=== PATIENT | female | born 1970 | race Caucasian/White ===

== ENCOUNTER 2024-03-10 09:33 | Day surgery (SDC) | payer BC ==
--- NOTE | 2024-03-09 14:05 | HP ---
HISTORY OF PRESENT ILLNESS: The patient is a 54-year-old female who presents for a screening colonoscopy. She had none to date. She reports that her mother had an oral and breast cancer. She has no colon complaints at this time. PAST MEDICAL HISTORY: Arthritis, hiatal hernia, obesity. HOME MEDICATIONS: Semaglutide. ALLERGIES: Morphine and tape. PAST SURGICAL HISTORY: Tonsillectomy, cholecystectomy, ovarian cystectomy, myringotomy, . SOCIAL HISTORY: Current smoker. Occasional alcohol. FAMILY HISTORY: Breast cancer, oral cancer, COPD, heart disease, hypertension. REVIEW OF SYSTEMS: CONSTITUTIONAL: Denies fever or chills. CHEST: Denies shortness of breath. CARDIOVASCULAR: Denies chest pain. ABDOMEN: Denies abdominal pain. PHYSICAL EXAMINATION: GENERAL: No acute distress. RESPIRATORY: Nonlabored. No shortness of breath. CARDIOVASCULAR: Regular rate and rhythm. ABDOMEN: Soft. ASSESSMENT: Screening. PLAN: Colonoscopy with Dr. Mor Richardson. This report was dictated for Dr. Richardson by Joan Moreno NP.
[2024-03-10] MEDS ORDERED: Versed 2 MG/2 ML Injection ONE (11:43)
[2024-03-10] MEDS ORDERED: DIPRIVAN 200 MG/20 ML IV ONE ×3 (11:43→13:14)
[2024-03-10 12:29] VITALS: RESP 20; TEMP 97.4
[2024-03-10 12:45] VITALS: BP 139/74; PULSE 77; O2SAT 99
--- NOTE | 2024-03-14 08:49 | OP ---
SURGERY DATE/TIME: 03/10/2024 [id number] PREOPERATIVE DIAGNOSIS: Screening. POSTOPERATIVE DIAGNOSIS: Three major polyps, 3 cm, 2 cm, and 3 cm; 3 cm distal sigmoid; 2 cm mid sigmoid; 3 cm mid ascending. She had at least five 1 cm polyps, four of these in the cecum and one other. PROCEDURE: Colonoscopy completed to cecum, hot snare polypectomy x3, hot forceps biopsy polypectomy x5. SURGEON: Mor Richardson MD ANESTHESIA: General. COMPLICATIONS: None. CONDITION: Stable. INDICATIONS: The patient presents for screening. DESCRIPTION OF PROCEDURE AND FINDINGS: She was taken to endoscopy. Left lateral decubitus position. Scope introduced. Immediately, there were polyps. A large polyp was taken off the distal sigmoid, 3 cm; a 2 cm polyp off the mid sigmoid; a 3 cm off the descending colon. These were all taken with a hot snare and they all seemed successful. The scope was advanced over the cecum and placed in the cecum with 4 polyps taken off, all 1 cm, and then back above this was a 1 cm polyp. Mucosa looked fairly good. There were some other mucosal polyps present and we certainly did not know the status of these polyps or the base of these polyps. We will see what the path shows and then we will go from there. PLAN: Findings discussed with family in the waiting room. Followup is almost immediate anticipated followup.
== END 2024-03-10 12:55 | disposition home or self-care (01) ==
LOC: SDC 09:33
PROVIDERS: ATTEND Surgery
DX: Z12.11 Encounter for screening for malignant neoplasm of colon (principal); Z80.3 Family history of malignant neoplasm of breast; Z80.0 Family history of malignant neoplasm of digestive organs; D12.2 Benign neoplasm of ascending colon; D12.0 Benign neoplasm of cecum; D12.4 Benign neoplasm of descending colon; D12.5 Benign neoplasm of sigmoid colon
CPT/HCPCS: J2250; J2704

== ENCOUNTER 2024-03-11 19:00 | Emergency (ER) | payer BC ==
--- NOTE | 2024-03-11 19:32 | ERPHSYRPT ---
- History of Present Illness Time Seen by Provider: 03/11/24 19:32 Source: patient Exam Limitations: no limitations Physician History: The patient presents with post-colonoscopy pain following polyp removal. They underwent a colonoscopy yesterday during which eight polyps were removed. Since the procedure, they have been experiencing significant pain in the area where the polyps were removed. No bleeding has been reported. They experience nausea associated with the pain, although they have not vomited. They describe feeling hot and cold throughout the day but are unsure if they have had a fever. They are taking acetaminophen every four hours, with the last dose taken around 4 PM, which has been helping to alleviate the pain. They are not allergic to any medications and are open to taking stronger pain medication if necessary. Timing/Duration: yesterday Severity: severe Modifying Factors: Improves With: nothing Associated Symptoms: nausea, abdominal pain, No vomiting Allergies/Adverse Reactions: adhesive tape Allergy (Verified 03/11/24 21:19) red and itchy at sight Travel Risk - Emerging Infectious Disease Are you exhibiting symptoms associated with any current EIDs: No - Review of Systems All Other Systems: Reviewed and Negative - Past Medical History Pertinent Past Medical History: Yes Neurological History: No Pertinent History ENT History: No Pertinent History Cardiac History: No Pertinent History Respiratory History: No Pertinent History, Other Endocrine Medical History: No Pertinent History Musculoskeletal History: No Pertinent History GI Medical History: No Pertinent History History: No Pertinent History Psycho-Social History: No Pertinent History Female Reproductive Disorders: No Pertinent History Other Medical History: former smoker (cessation 2022) , tubes in ears as a child - Past Surgical History Past Surgical History: Yes Neuro Surgical History: No Pertinent History Cardiac: No Pertinent History Respiratory: No Pertinent History Gastrointestinal: Cholecystectomy Genitourinary: No Pertinent History Musculoskeletal: No Pertinent History Female Surgical History: Section Other Surgical History: Abdominal expoloratory surgery, 3 cesareans,. tubes in ears as a child - Social History Smoking Status: Former smoker Exposure to second hand smoke: Yes Drug Use: none - Nursing Vital Signs Nursing Vital Signs: Initial Vital Signs Temperature 98.4 F 03/11/24 20:57 Pulse Rate 73 03/11/24 20:57 Respiratory Rate 18 03/11/24 20:57 Blood Pressure 150/85 03/11/24 20:57 O2 Sat by Pulse Oximetry 99 03/11/24 20:57 Pain Scale Pain Intensity 8 - Physical Exam General Appearance: no apparent distress Respiratory Exam: normal breath sounds, lungs clear, airway intact, No respiratory distress Cardiovascular Exam: regular rate/rhythm, normal heart sounds, capillary refill <2 sec, No edema Gastrointestinal/Abdomen Exam: soft, normal bowel sounds, tenderness (global), guarding, No distention, No mass, No rebound - Course Nursing assessment & vital signs reviewed: Yes - CT Exams Abdomen/Pelvis CT Interpretation: Tele-radiologist Report, Other (diverticulosis, no acute findings) Ordered Tests: Medication Summary Discontinued Medications Generic Name Dose Route Start Last Admin Trade Name Adalbertoq PRN Reason Stop Dose Admin Morphine Sulfate 2 mg 03/11/24 21:15 03/11/24 21:57 Morphine Sulfate 2 Mg/Ml Inj IV 03/11/24 21:16 2 mg STAT ONE Administration Morphine Sulfate Confirm 03/11/24 21:55 Morphine Sulfate 2 Mg/Ml Inj Administered 03/11/24 21:56 Dose 2 mg .ROUTE .[employer] [employer] ONE Lab/Rad Data: Laboratory Result Diagrams 03/11/24 19:55 03/11/24 19:55 Laboratory Results 03/11/24 03/11/24 03/11/24 Range/Units 19:55 19:55 19:55 WBC (3.98-10.04) x10^3/uL RBC (3.93-5.22) x10^6/uL Hgb (11.2-15.7) g/dL Hct (34.1-44.9) % MCV (79.4-94.8) fL MCH (25.6-32.2) pg MCHC (32.2-35.5) g/dL RDW (11.7-14.4) % Plt Count (182-369) x10^3/uL MPV (9.4-12.3) fL Gran % (34.0-71.1) % Immature Gran % (Auto) (0.001-0.429) % Nucleat RBC Rel Count (0.00-0.2) % Eos # (Auto) (0.04-0.36) x10^3/uL Immature Gran # (Auto) (0.001-0.031) x10^3u/L Absolute Lymphs (auto) (1.18-3.74) x10^3/uL Absolute Monos (auto) (0.24-0.86) x10^3/uL Absolute Nucleated RBC (0.00-0.012) x10^3u/L Lymphocytes % (19.3-51.7) % Monocytes % (4.7-12.5) % Eosinophils % (0.7-5.8) % Basophils % (0.1-1.2) % Absolute Granulocytes (1.56-6.13) x10^3/uL Basophils # (0.01-0.08) x10^3/uL PT 10.2 (9.4-12.5) SECONDS INR 0.93 (0.8-3.0) APTT 29.9 (25.1-36.5) SECONDS Sodium (135-145) mmol/L Potassium (3.5-5.1) mmol/L Chloride (98-107) mmol/L Carbon Dioxide (22-30) mmol/L Anion Gap (5-15) MEQ/L BUN (7-17) mg/dL Creatinine (0.52-1.04) mg/dL Estimated GFR ML/MIN Glucose (74-106) mg/dL Calcium (8.4-10.2) mg/dL Total Bilirubin (0.2-1.3) mg/dL AST (14-36) U/L ALT (0-35) U/L Alkaline Phosphatase (38-126) U/L Serum Total Protein (6.3-8.2) g/dL Albumin (3.5-5.0) g/dL ABO Group A Rh Factor POSITIVE Antibody Screen NEGATIVE (NEGATIVE) 03/11/24 03/11/24 Range/Units 19:55 19:55 WBC 10.8 H (3.98-10.04) x10^3/uL RBC 5.09 (3.93-5.22) x10^6/uL Hgb 15.0 (11.2-15.7) g/dL Hct 45.2 H (34.1-44.9) % MCV 88.8 (79.4-94.8) fL MCH 29.5 (25.6-32.2) pg MCHC 33.2 (32.2-35.5) g/dL RDW 13.1 (11.7-14.4) % Plt Count 243 (182-369) x10^3/uL MPV 11.1 (9.4-12.3) fL Gran % 56.3 (34.0-71.1) % Immature Gran % (Auto) 0.3 (0.001-0.429) % Nucleat RBC Rel Count 0.0 (0.00-0.2) % Eos # (Auto) 0.15 (0.04-0.36) x10^3/uL Immature Gran # (Auto) 0.03 (0.001-0.031) x10^3u/L Absolute Lymphs (auto) 3.86 H (1.18-3.74) x10^3/uL Absolute Monos (auto) 0.64 (0.24-0.86) x10^3/uL Absolute Nucleated RBC 0.00 (0.00-0.012) x10^3u/L Lymphocytes % 35.8 (19.3-51.7) % Monocytes % 5.9 (4.7-12.5) % Eosinophils % 1.4 (0.7-5.8) % Basophils % 0.3 (0.1-1.2) % Absolute Granulocytes 6.08 (1.56-6.13) x10^3/uL Basophils # 0.03 (0.01-0.08) x10^3/uL PT (9.4-12.5) SECONDS INR (0.8-3.0) APTT (25.1-36.5) SECONDS Sodium 140 (135-145) mmol/L Potassium 3.8 (3.5-5.1) mmol/L Chloride 107 (98-107) mmol/L Carbon Dioxide 27 (22-30) mmol/L Anion Gap 9.2 (5-15) MEQ/L BUN 16 (7-17) mg/dL Creatinine 0.80 (0.52-1.04) mg/dL Estimated GFR 88.1 ML/MIN Glucose 91 (74-106) mg/dL Calcium 9.6 (8.4-10.2) mg/dL Total Bilirubin 0.50 (0.2-1.3) mg/dL AST 19 (14-36) U/L ALT 21 (0-35) U/L Alkaline Phosphatase 66 (38-126) U/L Serum Total Protein 7.1 (6.3-8.2) g/dL Albumin 4.3 (3.5-5.0) g/dL ABO Group Rh Factor Antibody Screen (NEGATIVE) - Progress Progress: improved Progress Note: Patient presented to the emergency room with abdominal pain status post recent colonoscopy with polypectomy. She denies bleeding. She has been able to tolerate p.o. Laboratory evaluation unremarkable. CT abdomen pelvis showed no signs of free air. Patient improved with Morphine. Dr. Richardson recommends liquid diet until pain resolves. [place] sent for as needed use. Follow up with Dr. Richardson Thursday or Thursday. Discussed with : John Counseled pt/family regarding: lab results, diagnosis, need for follow-up, rad results - Departure Departure Disposition: Home Clinical Impression: Abdominal pain Condition: Stable Critical Care Time: No Referrals: KYLE KNAPP MD [Primary Care Provider] - Follow up/PCP as directed Instructions: Abdominal Pain, Adult ED Prescriptions: Hydrocodone/Acetaminophen [[place] 10-325 mg] 1 tablet PO Q6H PRN PRN 5 Days #20 tablet MDD 4 tab PRN Reason: Pain
[2024-03-11 20:02] LABS: Absolute Neutrophil Ct (ANC) 6.08 x10^3/uL (1.56-6.13); BASOPHIL % 0.3 % (0.1-1.2); Basophil (Absolute #) 0.03 x10^3/uL (0.01-0.08); Eosinophil % 1.4 % (0.7-5.8); Eosinophil (Absolute #) 0.15 x10^3/uL (0.04-0.36); Hematocrit 45.2 % (34.1-44.9); IMMATURE GRAN # 0.03 x10^3u/L (0.001-0.031); IMMATURE GRAN % 0.3 % (0.001-0.429); Lymphocyte (Absolute #) 3.86 x10^3/uL (1.18-3.74); Lymphocytes % 35.8 % (19.3-51.7); Mean Cell Volume 88.8 fL (79.4-94.8); Mean Corpuscular Hemoglobin 29.5 pg (25.6-32.2); Mean Corpuscular Hgb Concent. 33.2 g/dL (32.2-35.5); Mean Platelet Volume 11.1 fL (9.4-12.3); Monocyte (Absolute #) 0.64 x10^3/uL (0.24-0.86); Monocytes % 5.9 % (4.7-12.5); Neutrophil % 56.3 % (34.0-71.1); Platelet Count 243 x10^3/uL (182-369); Red Blood Count 5.09 x10^6/uL (3.93-5.22); Red Cell Distribution Width 13.1 % (11.7-14.4); White Blood Count 10.8 x10^3/uL (3.98-10.04)
[2024-03-11 20:22] LABS: ALBUMIN 4.3 g/dL (3.5-5.0); ANION GAP 9.2 MEQ/L (5-15); BILIRUBIN,TOTAL 0.5 mg/dL (0.2-1.3); Calcium 9.6 mg/dL (8.4-10.2); Creatinine 1 0.8 mg/dL (0.52-1.04); EST GLOMERULAR FILTRATION RATE 88.1 ML/MIN; Potassium 3.8 mmol/L (3.5-5.1); Total Protein 7.1 g/dL (6.3-8.2)
[2024-03-11 20:48] LABS: ABO TYPING A; Antibody Screen NEGATIVE (NEGATIVE); RH TYPING POSITIVE
[2024-03-11 21:18] VITALS: BP 150/85; PULSE 73; RESP 18; TEMP 98.4; O2SAT 99
[2024-03-11] MEDS ORDERED: MORPHINE SULFATE 2 MG INJ ONE (21:55)
[2024-03-11] MEDS: MORPHINE SULFATE 2 MG INJ IV ONE (21:57)
[2024-03-11 22:46] LABS: INR 0.93 (0.8-3.0); PROTIME 10.2 SECONDS (9.4-12.5)
--- NOTE | 2024-03-12 08:47 | XRAY ---
Indication: Abdominal pain. Status post colonoscopy with biopsy. Multiple contiguous axial images obtained through the abdomen and pelvis without contrast. Comparison: None Lung bases clear with incidental small right middle lobe calcified granuloma. Heart not enlarged with chunky right infrahilar calcified node. Noncontrasted stomach and bowel loops appear nonobstructed with normal appendix. Mild fecal debris in ascending and transverse colon. Minimal sigmoid diverticulosis without diverticulitis. Previous cholecystectomy. A few incidental splenic calcified granulomas and a uterine IUD. No free fluid/air. Remaining liver, pancreas, spleen, adrenal glands, kidneys, ureters, bladder, and uterus are unremarkable for noncontrast exam. Minimal aortic calcifications without AAA. Osseous structures intact with minimal degenerative changes throughout spine. Moderate/advanced right hip degenerative arthropathy. No ventral or inguinal hernias. Impression: 1. Chronic findings including sigmoid diverticulosis, arteriosclerotic disease, chronic bony findings, uterine IUD in situ, and old granulomatous disease. 2. No acute findings on this noncontrast exam.
== END 2024-03-12 00:27 | disposition home or self-care (01) ==
LOC: ED 19:00
DX: R10.9 Unspecified abdominal pain (principal); Z98.890 Other specified postprocedural states
CPT/HCPCS: 36415; 74176; 80053; 85025; 85610; 85730; 86850; 86900; 86901; 96374; 99284; J2270